=== PATIENT | male | born 1965 | race Hispanic/Latino ===

== ENCOUNTER 2018-12-21 20:12 | Inpatient (IN) | payer MEDICAID ==
--- NOTE | 2018-12-21 20:37 | C.PDOC ---
History Of Present Illness Patient is a 53 year old male, with a PMHx of alcoholism and heroine abuse, who presents to the ED for c/o depression and SI. Patient states that this is his first visit to the ED for these sx. He admits to drinking heavily lately. P atient denies any HI, hallucinations, CP, SOB, or other medical complaints at the present moment. Time Seen by Provider: 12/21/18 20:24 Chief Complaint (Nursing): Psychiatric Evaluation History Per: Patient History/Exam Limitations: no limitations Onset/Duration Of Symptoms: Days Current Symptoms Are (Timing): Still Present Suicide/Self Injury Attempted (Context): None Modifying Factor(s): Alcohol Associated Symptoms: Depression, Suicidal Thoughts Involuntary Hold By: None Recent travel outside of the [place]: No Additional History Per: Patient Past Medical History Reviewed: Historical Data, Nursing Documentation, Vital Signs Vital Signs: Last Vital Signs Temp 97.8 F 12/21/18 20:18 Pulse 60 12/21/18 20:18 Resp 16 12/21/18 20:18 BP 158/93 H 12/21/18 20:18 Pulse Ox 98 12/21/18 20:18 - Medical History PMH: No Chronic Diseases Surgical History: No Surg Hx - [facility] INJECT/INFUSE NEC (10/28/07) Family History: States: No Known Family Hx - Social History Hx Alcohol Use: Yes Hx Substance Use: Yes - Immunization History Hx Tetanus Toxoid Vaccination: No Hx Influenza Vaccination: No Hx Pneumococcal Vaccination: No Review Of Systems Cardiovascular: Negative for: Chest Pain Respiratory: Negative for: Shortness of Breath Psych: Positive for: Depression, Suicidal ideation. Negative for: Other (homicidal ideation, hallucinations ) Physical Exam - Physical Exam Appears: Non-toxic, No Acute Distress, Other (disheveled. alcohol on breath. thin white male) Skin: Normal Color, Warm, Dry Head: Atraumatic, Normacephalic Oral Mucosa: Moist Neck: Normal ROM, Supple Chest: Symmetrical, No Deformity Cardiovascular: Rhythm Regular, No Murmur Respiratory: Normal Breath Sounds, No Rales, No Rhonchi, No Wheezing Gastrointestinal/Abdominal: Soft, No Tenderness, No Guarding, No Rebound Extremity: Normal ROM Neurological/Psych: Oriented x3, Normal Speech, Normal Cognition ED Course And Treatment - Laboratory Results Result Diagrams: 12/21/18 20:40 12/21/18 20:40 Lab Interpretation: Abnormal (tox + opiates, etoh neg) O2 Sat by Pulse Oximetry: 98 (on RA) Pulse Ox Interpretation: Normal Medical Decision Making Medical Decision Making: Plan: Bloodwork and Urinaylsis ordered and reviewed. Disposition Doctor Will See Patient In The: Hospital Counseled Patient/Family Regarding: Studies Performed, Diagnosis - Disposition Disposition: HOSPITALIZED Disposition Time: 22:16 Condition: GOOD Forms: [facility] (Danish) - Clinical Impression Clinical Impression: Opiate abuse, continuous, Depression - Scribe Statement The provider has reviewed the documentation as recorded by the Scriblatrice Vazquez All medical record entries made by the Moisesiblatrice were at my direction and personally dictated by me. I have reviewed the chart and agree that the record accurately reflects my personal performance of the history, physical exam, medical decision making, and the department course for this patient. I have also personally directed, reviewed, and agree with the discharge instructions and disposition.
[2018-12-21 20:43] LABS: BASO % 0.3 % (0.0-2.0); EOS % 0.5 % (0.0-4.0); HEMOGLOBIN 13.2 g/dL (12.0-18.0); LYMPH # 1.3 K/uL (1.0-4.3); LYMPH % 21.9 % (20.0-40.0); MEAN CELL VOLUME 86.5 fL (80.0-94.0); MEAN CORPUSCULAR HEMOGLOBIN 28.8 pg (27.0-31.0); MEAN CORPUSCULAR HGB CONC 33.3 g/dL (33.0-37.0); MEAN PLATELET VOLUME 8.2 fL (7.2-11.7); MONO # 0.4 K/uL (0.0-0.8); MONO % 7.1 % (0.0-10.0); NEUT # 4.3 K/uL (1.8-7.0); NEUT % 70.2 % (50.0-75.0); NRBC % 0.1 % (0.0-2.0); RBC 4.58 Mil/uL (4.40-5.90); RED CELL DISTRIBUTION WIDTH 14.1 % (11.5-14.5); WHITE BLOOD COUNT 6.1 K/uL (4.8-10.8)
[2018-12-21 20:57] LABS: ACETAMINOPHEN < 10.0 ug/mL (10.0-30.0); SALICYLATE < 1.0 mg/dL 1
[2018-12-21 20:59] LABS: ALB/GLOB RATIO 1.7 (1.0-2.1); ALBUMIN 4.4 g/dL (3.5-5.0); ALT/SGPT 10 U/L (21-72); AST/SGOT 25 U/L (17-59); BLOOD UREA NITROGEN 22 mg/dL (9-20); GFR NON-AFRICAN AMERICAN > 60
[2018-12-21 21:30] LABS: URINE BILIRUBIN NEGATIVE (NEGATIVE); URINE BLOOD NEGATIVE (NEGATIVE); URINE CALCIUM OXALATE CRYSTALS MOD /hpf (<OCC); URINE CLARITY Clear (Clear); URINE COLOR Yellow (YELLOW); URINE GLUCOSE (UA) NORMAL (Normal); URINE LEUKOCYTE ESTERASE NEG Leu/uL (Negative); URINE PROTEIN NEGATIVE (NEGATIVE)
[2018-12-21 21:45] LABS: BARBITURATES, UR NEGATIVE (NEGATIVE); BENZODIAZEPINES, UR NEGATIVE (NEGATIVE); PHENCYCLIDINE, UR NEGATIVE (NEGATIVE)
[2018-12-21 21:51] LABS: OPIATES, UR POSITIVE (NEGATIVE)
[2018-12-21] MEDS ORDERED: Aluminum Hydroxide/Magnesium Hydroxide Susp (30 mL) PO PRN (23:22)
--- NOTE | 2018-12-22 00:20 | PCM.BM ---
Treatment Plan Problems - Problems identified on initial assessmt Hopelessness/Helplessness Date Initiated: 12/22/18 Time Initiated: 22:45 Assessment reference: NA Status: Active Feelings of Worthlessness Date Initiated: 12/22/18 Time Initiated: 22:45 Assessment reference: NA Status: Active Defensive Coping Date Initiated: 12/22/18 Time Initiated: 22:45 Assessment reference: NA Status: Active Substance Abuse Date Initiated: 12/22/18 Time Initiated: :45 Assessment reference: NA Status: Active Treatment assets and liabiliti Patient Assests: cooperative, ADL independent, negotiates basic needs Patient Liabilities: live alone, financial problems, poor support system, relationship conflicts, substance abuse (History of IV Heroin use, 15-20 bags daily and ETOH abuse, 1-2 pints of Vodka daily), legal issue - Milieu Protocol Maintain good personal hygiene: daily Encourage regular showers, daily Remind patient to perform daily oral care, daily Assist patient to perform ADL's Conduct patient checks and document Observation sheet: Q15 minutes Maintain personal safety: every shift Educate patient to report safety concerns to staff, every shift Monitor environment for contraband/sharps Medication safety: Monitor for expected outcome, potential side effects: every shift, Assess barriers to learning: every shift, Assess readiness for medication education: every shift
--- NOTE | 2018-12-22 01:32 | PCM.BM ---
Treatment Plan Problems - Problems identified on initial assessmt Problem 2 Date Initiated: 12/22/18 Time Initiated: 22:45 Assessment reference: NA Status: Active
--- NOTE | 2018-12-22 01:37 | PCM.BM ---
<Keith Anton - Last Filed: 12/22/18 01:33> Treatment Plan Problems - Problems identified on initial assessmt Hopelessness/Helplessness Date Initiated: 12/22/18 Time Initiated: 22:45 Assessment reference: NA Status: Active Feelings of Worthlessness Date Initiated: 12/22/18 Time Initiated: 22:45 Assessment reference: NA Status: Active Defensive Coping Date Initiated: 12/22/18 Time Initiated: 22:45 Assessment reference: NA Status: Active Treatment assets and liabiliti Patient Assests: cooperative, ADL independent, negotiates basic needs Patient Liabilities: live alone, financial problems, substance abuse (History of IV Heroin use, 15-20 bags daily and ETOH use 1-2 pints daily), legal issue - Milieu Protocol Maintain good personal hygiene: daily Encourage regular showers, daily Remind patient to perform daily oral care, every shift Assist patient to perform ADL's Conduct patient checks and document Observation sheet: Q15 minutes Maintain personal safety: every shift Educate patient to report safety concerns to staff, every shift Monitor environment for contraband/sharps Medication safety: Monitor for expected outcome, potential side effects: every shift, Assess barriers to learning: every shift, Assess readiness for medication education: every shift <SidTaty - Last Filed: 12/23/18 11:42> Treatment Plan Problems - Problems identified on initial assessmt Hopelessness/Helplessness Date Initiated: 12/22/18 Time Initiated: 22:45 Assessment reference: NA Status: Active Feelings of Worthlessness Date Initiated: 12/22/18 Time Initiated: 22:45 Assessment reference: NA Status: Active Defensive Coping Date Initiated: 12/22/18 Time Initiated: 22:45 Assessment reference: NA Status: Active Problem 2 Date Initiated: 12/22/18 Time Initiated: 22:45 Assessment reference: NA Status: Active - Diagnosis (1) Depression Status: Acute Interventions: 12/23/18 11:42 * Assess/adjust medications daily and /or as needed * See patient on an individual basis 7x/week to assess symptoms of depression * Monitor for side effects & effectiveness of medications * (2) Opiate abuse, continuous Status: Acute Interventions: 12/23/18 11:43 * Assess 7x/week regarding severity of withdrawal * Educate regarding risks, benefits, side effects and alternatives of medications * Use Motivational Interviewing for abstinence * Use CBT for relapse prevention * Medication management for withdrawal symptoms * Encourage medication assisted treatment * <Katherine Ferraro - Last Filed: 12/23/18 14:12> Family Contact Family involvement: Famliy/SO not involved - Goals for Treatment Patient goals for treatment: "I want to go to rehab." Discharge/Continuing Care - Education Needs Education Needs: Patient Medication, Patient Coping Skills, Patient Placement options, Patient Community resources - Discharge Discharge Criteria: Tolerates medication w/o severe side effects, No longer exhibiting s/s of withdrawal, Reduction of target symptoms Discharge to:: Substance Abuse Rehab - Treatment Team Participation Discussed with Family/SO: No Was Patient/Family/SO present at Treatment Team Meeting: Yes
--- NOTE | 2018-12-22 10:24 | PCM.PSYCH ---
Initial Psychiatric Evaluation - Initial Psychiatric Evaluation Type of Admission: Voluntary Legal Status: Capacity Chief Complaint (in patient's own words): I was feeling depressed and suicidal.' History of Present Illness and Precipitating Events: Patient is a 53 yo male, single, homeless, and unemployed presents to psychiatry for depression, substance abuse and suicidal ideation. Pt reports recent life stressors including losing his apartment and job as well as his leaving after experiencing a miscarriage; leading to thoughts of suicide and to breaking his sobriety after being clean for 27 months. He expressed his thoughts of suicide with a friend, telling him that Im going to jump off a bridge, I dont care anymore, so his friend brought him to [facility] for tx. Pt admits to 20 year opiod hx. Pt is currently using 10-15 bags of heroin daily both intranasally and injection for the past 7 months. Pt admits to drinking alcohol daily, whatever I can get my hands on. Pt began drinking at age 11. Pt reports 3 previous detox admissions at [facility] and [facility]. Pt has hx of 5 incarcerations for burglary and possession of controlled substances. He denies being on parole or probation. Pt denies any previous psychiatric admissions. Pt admits to previous thoughts of suicide but never any attempts. He reports depressed mood, feelings of hopelessness and helplessness. He also reports poor sleep and poor appetite. Pt denies any visual or auditory hallucinations at this time. Past medical history None reported Current Medications: Active Medications Generic Name Dose Route Start Last Admin Trade Name Freq PRN Reason Stop Dose Admin Al Hydrox/Mg Hydrox/Simethicone 30 ml 12/21/18 23:22 Maalox 30 Ml PO TID PRN Indigestion / Heartburn Clonidine HCl 0.1 mg 12/21/18 23:22 Catapres PO Q4 PRN COWS Score More or Equal to 5 Dicyclomine HCl 10 mg 12/21/18 23:22 Bentyl PO Q6 PRN Muscle spasm Gabapentin 400 mg 12/22/18 10:00 12/22/18 09:37 Neurontin PO 400 mg TID RICHARD Administration Ibuprofen 600 mg 12/21/18 23:22 Motrin Tab PO Q6 PRN Pain, moderate (4-7) Loperamide HCl 2 mg 12/21/18 23:22 Imodium PO Q8 PRN Diarrhea Methadone HCl 20 mg 12/22/18 10:00 12/22/18 09:37 Methadone PO 12/26/18 09:59 20 mg Q24H RICHARD Administration Taper Ondansetron HCl 4 mg 12/21/18 23:22 Zofran Tab PO Q8 PRN Nausea/Vomiting Pneumococcal Polyvalent Vaccine 0.5 ml 12/23/18 10:00 Pneumovax 23 Vaccine IM 12/23/18 10:01 .ONCE ONE Trazodone HCl 50 mg 12/21/18 23:30 12/21/18 23:41 Desyrel PO 50 mg HS RICHARD Administration Past Psychiatric History - Past Psychiatric History Previous Treatment History: None Pertinent Medical Hx (Current Medical&Sleep Prob, Allergies): Allergies Allergy/AdvReac Type Severity Reaction Status Date / Time No Known Allergies Allergy Verified 12/21/18 20:19 No Known Home Med 12/21/18 Review of Systems - Review of Systems All systems: reviewed and no additional remarkable complaints except - Psychiatric Psychiatric: Anxiety, Depression, Hopelessness, Irritability, Suicidal Ideation Mental Status Examination - Personal Presentation Personal Presentation: Looks stated age - Affect Affect: Constricted, Depressed - Motor Activity Motor Activity: Calm - Reliability in Providing Information Reliability in Providing Information: Good - Speech Speech: Organized - Mood Mood: Depressed, Anxious - Formal Thought Process Formal Thought Process: No Impairment - Obsessions/Compulsions Obsessions: No Compulsions: No - Cognitive Functions Orientation: Person, Place, Situation, Time Sensorium: Alert Attention/Concentration: Attentive Abstract Thinking: [place] Estimate of Intelligence: Below average Judgement: Imparied, as evidence by: Poor judgement, Imparied, as evidence by: Lack of insight into illness - Risk Risk: Suicidal, Withdrawal, Diminished functioning - Limitations Limitations: Living alone DSM 5 DX - DSM 5 DSM 5 Diagnosis: Major depressive disorder recurrent severe without psychotic features Opioid use disorders severe Opioid withdrawal Alcohol use disorder severe - Recommended/Plan of Treatment Treatment Recommendations and Plan of Treatment: Major depressive disorder recurrent severe without psychotic features Opioid use disorders severe Opioid withdrawal Alcohol use disorder severe CBT Psychoeducation nursing supportive therapy and group therapy Methadone taper Librium as needed As needed medications Trazodone for insomnia Neurontin for augmentation Paxil for depression
[2018-12-23] MEDS ORDERED: Pneumococcal 23-Valent Vaccine IM ONE (10:00)
--- NOTE | 2018-12-24 22:51 | PCM.PYCHPN ---
Psychiatric Progress Note - Psychiatric Progress Note Patient seen today, length of contact: 15 min Patient Chief Complaint: I m feeling down.' Problems Identified/Issues Discussed: Patient was seen and evaluated, chart reviewed and discussed the staff. History reports depressed mood and at times feelings of hopelessness and helplessness. He also reports poor sleep and poor appetite. Patient still reports withdrawal symptoms including nausea, cramps, joint pains, anxiety and sweating. He is taking medication but denies any side effects. He needs to stay longer for further stabilization. Supportive therapy was given Medication Change: Yes Medical Record Reviewed: Yes Mental Status Examination - Cognitive Function Orientation: Person, Place, Situation, Time Memory: Intact Attention: WNL Concentration: Poor Association: WNL Fund of Knowledge: Poor - Mood Mood: Depressed, Anxious - Affect Affect: Constricted, Depressed - Speech Speech: Soft - Formal Thought Process Formal Thought Process: No Impairment - Suicidal Ideation Suicidal Ideation: No - Homicidal Ideation Homicidal Ideation: No Goal/Treatment Plan - Goal/Treatment Plan Need for Continued Stay: Severe depression anxiety, Severe functional impairment Progress Toward Problem(s) and Goals/Treatment Plan: Major depressive disorder recurrent severe without psychotic features Opioid use disorders severe Opioid withdrawal Alcohol use disorder severe CBT Psychoeducation nursing supportive therapy and group therapy Methadone taper Librium as needed As needed medications Trazodone for insomnia Neurontin for augmentation Paxil for depression - Smoking Cessation Smoking Cessation Initiated: No
[2018-12-26 06:46] VITALS: RESP 18
[2018-12-28 09:21] VITALS: BP 127/84; PULSE 103; TEMP 98.3; O2SAT 99
--- NOTE | 2018-12-28 09:41 | PCM.PYCHDC ---
Mental Status Examination - Mental Status Examination Orientation: Person, Place, Situation Memory: Intact Mood: Neutral Affect: Constricted Speech: Soft Attention: WNL Concentration: WNL Association: WNL Fund of Knowledge: WNL Formal Thought Process: No Impairment Description of patient's judgement and insight: good, fair Psychotic Thoughts and Behaviors: denies any AVH Suicidal Ideation: No Current Homicidal Ideation?: No Discharge Summary - Discharge Note Reason for Hospitalization: Patient is a 53 yo male, single, homeless, and unemployed presents to psychiatry for depression, substance abuse and suicidal ideation. Pt reports recent life stressors including losing his apartment and job as well as his leaving after experiencing a miscarriage; leading to thoughts of suicide and to breaking his sobriety after being clean for 27 months. He expressed his thoughts of suicide with a friend, telling him that Im going to jump off a bridge, I dont care anymore, so his friend brought him to [facility] for tx. Pt admits to 20 year opiod hx. Pt is currently using 10-15 bags of heroin daily both intranasally and injection for the past 7 months. Pt admits to drinking alcohol daily, whatever I can get my hands on. Pt began drinking at age 11. Pt reports 3 previous detox admissions at [facility] and [facility]. Pt has hx of 5 incarcerations for burglary and possession of controlled substances. He denies being on parole or probation. Pt denies any previous psychiatric admissions. Pt admits to previous thoughts of suicide but never any attempts. He reports depressed mood, feelings of hopelessness and helplessness. He also reports poor sleep and poor appetite. Pt denies any visual or auditory hallucinations at this time. Consultations:: List each consultation separately and include: 1. Reason for request. 2. Findings. 3. Follow-up Summary of Hospital Course include:: 1. Description of specific treatment plan utilized for patients during their course of treatmen. 2. Summarize the time- course for resolution of acute symptoms and/or regressed behaviors. 3. Describe issues identified and worked on during hospitalization. 4. Describe medication utilized. 5. Describe medical problems identified and treated. 6. Reassessment of suicide risk Summary of Hospital Course: Patient is a 53 yo male, single, homeless, and unemployed presents to psychiatry for depression, substance abuse and suicidal ideation. Pt reports recent life stressors including losing his apartment and job as well as his leaving after experiencing a miscarriage; leading to thoughts of suicide and to breaking his sobriety after being clean for 27 months. He expressed his thoughts of suicide with a friend, telling him that Im going to jump off a bridge, I dont care anymore, so his friend brought him to [facility] for tx. Pt admits to 20 year opiod hx. Pt is currently using 10-15 bags of heroin daily both intranasally and injection for the past 7 months. Pt admits to drinking alcohol daily, whatever I can get my hands on. Pt began drinking at age 11. Pt reports 3 previous detox admissions at [facility] and [facility]. Pt has hx of 5 incarcerations for burglary and possession of controlled substanc es. He denies being on parole or probation. Pt denies any previous psychiatric admissions. Pt admits to previous thoughts of suicide but never any attempts. He reports depressed mood, feelings of hopelessness and helplessness. He also reports poor sleep and poor appetite. Pt denies any visual or auditory hallucinations at this time. Past medical history None reported - Diagnosis (1) Depression Current Visit: Yes Status: Acute (2) Opiate abuse, continuous Current Visit: Yes Status: Acute - Final Diagnosis (DSM 5) Condition upon Discharge: GOOD DSM 5: Major depressive disorder recurrent severe without psychotic features Opioid use disorders severe Opioid withdrawal Alcohol use disorder severe Disposition: HOME/ ROUTINE Follow-up Treatment Plan: Major depressive disorder recurrent severe without psychotic features Opioid use disorders severe Opioid withdrawal Alcohol use disorder severe CBT Psychoeducation nursing supportive therapy and group therapy Methadone taper Librium as needed As needed medications Trazodone for insomnia Neurontin for augmentation Paxil for depression Prescriptions/Medication Reconciliation: Gabapentin [Neurontin] 100 mg PO BID #60 cap traZODone [Desyrel] 50 mg PO HS #30 tab - Smoking Cessation Smoking Cessation Medication prescribed: No
== END 2018-12-28 11:15 | disposition home or self-care (01) | DRG 744 ==
LOC: C.ER 20:12 → C.5E 22:16
PROC: HZ52ZZZ Individual Psychotherapy for Substance Abuse Treatment, Cognitive-Behavioral (ICD-10-PCS; principal; 2018-12-21)
PROC: HZ2ZZZZ Detoxification Services for Substance Abuse Treatment (ICD-10-PCS; 2018-12-21)
PROC: HZ59ZZZ Individual Psychotherapy for Substance Abuse Treatment, Supportive (ICD-10-PCS; 2018-12-21)
PROC: HZ56ZZZ Individual Psychotherapy for Substance Abuse Treatment, Psychoeducation (ICD-10-PCS; 2018-12-21)
PROC: HZ42ZZZ Group Counseling for Substance Abuse Treatment, Cognitive-Behavioral (ICD-10-PCS; 2018-12-21)
PROC: HZ46ZZZ Group Counseling for Substance Abuse Treatment, Psychoeducation (ICD-10-PCS; 2018-12-21)
PROC: GZHZZZZ Group Psychotherapy (ICD-10-PCS; 2018-12-21)
PROC: GZ58ZZZ Individual Psychotherapy, Cognitive-Behavioral (ICD-10-PCS; 2018-12-21)
PROC: GZ56ZZZ Individual Psychotherapy, Supportive (ICD-10-PCS; 2018-12-21)
DX: F11.23 Opioid dependence with withdrawal (principal); F33.2 Major depressive disorder, recurrent severe without psychotic features; F10.20 Alcohol dependence, uncomplicated; Y90.0 Blood alcohol level of less than 20 mg/100 ml; G47.00 Insomnia, unspecified; R45.851 Suicidal ideations; Z59.0 Homelessness